=== PATIENT | female | born 1970 | race Caucasian/White ===

== ENCOUNTER → 2020-01-20 09:24 | Outpatient (BNVA) | payer BC, SELFPAY | PROVIDERS: PCP Family Medicine; Visit Provider Nurse Practitioner Family | DX: R07.9 Chest pain, unspecified (principal); K21.9 Gastro-esophageal reflux disease without esophagitis | CPT/HCPCS: 71046; 80053; 84484; 85025 ==

== ENCOUNTER 2023-10-17 08:14 | Outpatient (CLI) | payer SELFPAY ==
--- NOTE | 2023-10-17 08:45 | USCV_ITS ---
Antonieta Garrett Age: 53 Gender: F : 1970 Exam Date: 10/17/2023 08:49 Ordering Phys: Janay Sanchez NP Technologist: JESÚS Exam Location: [facility] [place] Indication: bradycardia, orthopnea BP: 128 / 78 HR: 64 Rhythm: Sinus Technical Quality: Good MEASUREMENTS (Male / Female) Normal Values 2D ECHO LV Diastolic Diameter PLAX 4.6 cm 4.2 - 5.9 / 3.9 - 5.3 cm LV Systolic Diameter PLAX 3.1 cm IVS Diastolic Thickness 0.9 cm 0.6 - 1.0 / 0.6 - 0.9 cm IVS Systolic Thickness 1.1 cm LVPW Diastolic Thickness 0.8 cm 0.6 - 1.0 / 0.6 - 0.9 cm LVPW Systolic Thickness 1.4 cm LVOT Diameter 2.0 cm LV Ejection Fraction 2D Teich 59.5 % LV Ejection Fraction MOD 2C 70.8 % LV Ejection Fraction 2C AL 71.4 % LA Diameter 2.6 cm LA Width 3.1 cm LA Height 4.5 cm RA Width 3.2 cm RA Height 4.3 cm Aorta at Sinotubular Diameter 3.1 cm IVC Diameter 2.0 cm M-MODE Aortic Annulus Diameter 2.3 cm LA Ao Ratio MM 1.3 MV E Point Septal Separation 0.6 cm DOPPLER AV Peak Velocity 150.0 cm/s LVOT Peak Velocity 139.0 cm/s AV Area Cont Eq vti 2.6 cm squared AV Area Cont Eq pk 2.9 cm squared MV Peak Velocity 117.0 cm/s MV Area PHT 3.9 cm squared Mitral E to A Ratio 0.9 MV E' Velocity 50.0 cm/s Mitral E to MV E' Ratio 7.1 Mitral E to LV E' Lateral Ratio 5.6 Mitral E to LV E' Septal Ratio 9.6 TR Peak Velocity 187.0 cm/s TR Peak Gradient 14.0 mmHg Right Atrial Pressure 5.0 mmHg Pulmonary Artery Systolic Pressu 19.0 mmHg PV Peak Velocity 90.0 cm/s RV Acceleration Time 0.1 s RV Ejection Time 0.3 s RV AcT/ET 0.4 FINDINGS Left Ventricle Normal left ventricular size, systolic function and wall thickness, with no regional wall motion abnormalities. Normal left ventricular wall thickness. Normal diastolic filling pattern. Left ventricular ejection fraction is estimated at 65 %. Right Ventricle The right ventricle is normal in size and function. Right Atrium The right atrium is normal in size. Left Atrium The left atrium is normal in size. Mitral Valve Structurally normal mitral valve without significant stenosis or prolapse. There is no mitral regurgitation. Aortic Valve Structurally normal aortic valve without significant sclerosis or stenosis. There is no aortic regurgitation. Tricuspid Valve Structurally normal tricuspid valve without significant stenosis or regurgitation. Pulmonary artery systolic pressure is normal. Pulmonic Valve Structurally normal pulmonic valve without significant stenosis. There is no pulmonic regurgitation. Pericardium Normal pericardium without effusion. Aorta Normal ascending aorta dimension. IVC The inferior vena cava appears normal. CONCLUSIONS Normal transthoracic echocardiogram. There are no prior echocardiogram studies to compare. Dr. Abelardo Brush MD (Electronically Signed) Final Date: 17 October 2023 10:08 S
== END 2023-10-17 08:15 | disposition home or self-care (01) ==
LOC: RAD 08:14
PROVIDERS: PCP Family Medicine; Visit Provider Nurse Practitioner Family
DX: R06.01 Orthopnea (principal); R00.1 Bradycardia, unspecified; R00.2 Palpitations
CPT/HCPCS: 93306